=== PATIENT | male | born 1960 | race Caucasian/White ===

== ENCOUNTER 2017-07-06 05:45 | Inpatient (IN) | payer MEDICARE ==
[~2017-07-06] VITALS: Ht 180.3 cm; Wt 77.1 kg
[~2017-07-06 05:45] MED LIST: AZITHROMYCIN 2250 MG PO; CEFDINIR300 MG PO; CELEXA20 MG PO; DUONEB 2.5-0.5 M3 ML INH; NICOTINE TRANSD21 M1; PREDNISONE 10 M10 MG PO; VENTOLIN HFA 1818 GM INH; XANAX1 MG PO
[2017-07-06 06:14] LABS: ABSOLUTE LYMPHOCYTES 1.2 thou/uL (0.8-5.3); ABSOLUTE MONOCYTES 0.3 thou/uL (0.0-1.2); ABSOLUTE NEUTROPHILS 5.1 thou/uL (1.6-8.1); BASOPHILS 0.4 %; HEMATOCRIT 47.1 % (42.0-52.0); HEMOGLOBIN 16.3 gm/dL (14.0-18.0); LYMPHOCYTES 17.9 %; MCH 32.5 pg (26.0-34.0); MCHC 34.6 g/dL (28.0-37.0); MCV 93.9 fL (80.0-100.0); MONOCYTES 4.6 %; MPV 8.2 fl. (7.2-11.1); NUCLEATED RBCS 0 /100WBC; PLATELET COUNT* 212 thou/uL (150-400); POLYS 77.1 %; RBC 5.02 mil/uL (4.50-6.00); WBC 6.6 thou/uL (4.0-11.0)
[2017-07-06 06:20] LABS: URINE BILIRUBIN NEGATIVE (Negative); URINE BLOOD NEGATIVE (Negative); URINE CLARITY CLEAR; URINE COLOR YELLOW; URINE GLUCOSE-RANDOM NEGATIVE (Negative); URINE KETONES NEGATIVE (Negative); URINE LEUKOCYTES-REFLEX NEGATIVE (Negative); URINE NITRITE-REFLEX NEGATIVE (Negative); URINE PROTEIN TRACE (Negative); URINE SPECIFIC GRAVITY >= 1.030 (1.005-1.030); URINE UROBILINOGEN 0.2 E.U./dl (0.2-1.0)
[2017-07-06 06:21] LABS: CALCIUM 8.3 mg/dL (8.5-10.1); CREATININE 0.8 mg/dL (0.6-1.3); POTASSIUM 3.9 mmol/L (3.5-5.1)
[2017-07-06 06:26] LABS: TOTAL BILIRUBIN 0.9 mg/dL (<0.1-1.0); TOTAL PROTEIN 7.7 g/dL (6.4-8.2)
[2017-07-06 06:27] LABS: AMP/METHAMP Negative (Negative); BARBITURATES Negative (Negative); BENZODIAZEPINES Negative (Negative); COCAINE Negative (Negative); METHADONE Negative (Negative); OPIATES Negative (Negative); PCP Negative (Negative); THC Negative (Negative)
[2017-07-06 06:49] LABS: SALICYLATE 6.3 mg/dL (2.8-20.0)
[2017-07-06 06:53] LABS: MAGNESIUM 1.6 mg/dL (1.8-2.4); TROPONIN-I LEVEL <0.06 ng/mL (<0.06)
[2017-07-06 08:25] VITALS: BP 147/78
[2017-07-06 08:30] VITALS: BP 143/87
[2017-07-06 08:56] LABS: INR 1.2; PROTIME 12.1 Seconds (9.20-11.50)
[2017-07-06 08:59] LABS: CALCIUM 7.8 mg/dL (8.5-10.1); PHOSPHORUS* 3.2 mg/dL (2.5-4.9)
--- NOTE | 2017-07-06 12:11 | EKG ---
[place] [address] ELECTROCARDIOGRAM REPORT Name: STEVEN CARDENAS Room: [address] ADM IN [facility]#: [id number] Admission: 07/06/17 Attend Phys: Andrés Ames MD Discharge: Date of : 58 Report #: [id number] THIS REPORT FOR: //name// [facility] ED Test Date: 2017-07-06 Test Time: 06:13:10 Pat Name: STEVEN CARDENAS Department: Room: [facility] Gender: M Neuropsychology Service Director: DAKOTA : 1960 Requested By: Lamont Wayne Order Number: [id number] MD: Jorge Gamble Measurements Intervals [place] Rate: 100 P: 81 UT: 142 QRS: -58 QRSD: 87 T: 67 QT: 352 QTc: 454 Interpretive Statements Sinus tachycardia Atrial premature complexes Left atrial enlargement Left axis deviation incomplete RBBB Borderline low voltage, extremity leads Compared to ECG 04/13/2017 16:34:01 Atrial premature complex(es) now present Electronically Signed On 07-06-2017 12:11:15 [employer]ANCH HAND SUPERVISOR by Jorge Gamble [email or web address] <ELECTRONICALLY SIGNED> By: Jorge Gamble MD, [facility] 07/06/17 1211 0613 2 Jorge Gamble MD, [facility] /EPI
[2017-07-06 12:30] VITALS: BP 135/80
[2017-07-06 16:15] VITALS: BP 135/84
[2017-07-06 20:30] VITALS: BP 142/89
[2017-07-07 00:03] VITALS: BP 124/71
[2017-07-07 04:00] VITALS: BP 113/68
[2017-07-07 06:08] LABS: ABSOLUTE LYMPHOCYTES 0.8 thou/uL (0.8-5.3); ABSOLUTE MONOCYTES 0.3 thou/uL (0.0-1.2); ABSOLUTE NEUTROPHILS 5.2 thou/uL (1.6-8.1); BASOPHILS 0.3 %; HEMATOCRIT 46.1 % (42.0-52.0); HEMOGLOBIN 15.6 gm/dL (14.0-18.0); LYMPHOCYTES 13.3 %; MCH 32.3 pg (26.0-34.0); MCHC 33.8 g/dL (28.0-37.0); MCV 95.6 fL (80.0-100.0); MONOCYTES 4.1 %; MPV 8.7 fl. (7.2-11.1); NUCLEATED RBCS 0 /100WBC; PLATELET COUNT* 164 thou/uL (150-400); POLYS 82.3 %; RBC 4.82 mil/uL (4.50-6.00); RDW-CV 15.2 % (10.5-14.5); WBC 6.3 thou/uL (4.0-11.0)
[2017-07-07 06:30] LABS: CREATININE 0.7 mg/dL (0.6-1.3); POTASSIUM 4.1 mmol/L (3.5-5.1)
[2017-07-07 06:37] LABS: PLATELET ESTIMATE ADEQUATE
[2017-07-07 06:41] LABS: HYPOCHROMASIA 2+; TARGET CELLS 1+
[2017-07-07 08:00] VITALS: BP 113/66
[2017-07-07 12:00] VITALS: BP 134/89
[2017-07-07 16:00] VITALS: BP 136/86
--- NOTE | 2017-07-27 13:03 | D ---
[address] [address] DISCHARGE SUMMARY Name: STEVEN CARDENAS Room: [address] IN M.R.#: [id number] Admission: 07/06/17 Attend Phys: Andrés Ames MD Discharge: 07/07/17 Date of : 58 Report #: [id number] THIS REPORT FOR: //name// CC: Andrés Ames [facility] physician/PCP DATE OF SERVICE: 07/07/2017 DISMISSAL DIAGNOSES: 1. Severe alcohol abuse. 2. Dehydration. 3. Tachycardia. 4. Hyponatremia, likely due to volume excess. 5. Toxic encephalopathy secondary to alcohol abuse. 6. Left lower lobe pneumonitis. 7. Chronic obstructive pulmonary disease. HOSPITAL COURSE: This patient was admitted to the hospital with the above diagnoses, placed on a banana bag and withdrawal protocol as well as thiamine and folic acid, admitted to telemetry and unfortunately left against medical advice later in that day. Prognosis is poor due to his noncompliance. No further instructions were given as he did leave [place]. <ELECTRONICALLY SIGNED> By: Kev Deluca MD 07/27/17 1303 1201 1244abbey Deluca MD /nt
== END 2017-07-07 19:48 | disposition left against medical advice (07) | DRG 177 ==
LOC: M.ERS 05:45 → M.2W 07:19 → M.TBA-ER 07:19 → M.2W 08:23
PROVIDERS: Emergency Medicine; Family Medicine; ADMIT Internal Medicine
DX: J69.0 Pneumonitis due to inhalation of food and vomit (principal); G93.40 Encephalopathy, unspecified; F10.239 Alcohol dependence with withdrawal, unspecified; J44.1 Chronic obstructive pulmonary disease with (acute) exacerbation; E87.1 Hypo-osmolality and hyponatremia; J44.0 Chronic obstructive pulmonary disease with (acute) lower respiratory infection; J18.1 Lobar pneumonia, unspecified organism; J44.9 Chronic obstructive pulmonary disease, unspecified; F17.210 Nicotine dependence, cigarettes, uncomplicated; F32.9 Major depressive disorder, single episode, unspecified; I10 Essential (primary) hypertension; E86.0 Dehydration; Z53.21 Procedure and treatment not carried out due to patient leaving prior to being seen by health care provider; Z90.81 Acquired absence of spleen; Z79.899 Other long term (current) drug therapy

== ENCOUNTER 2017-08-30 21:41 | Inpatient (IN) | payer MEDICARE ==
[~2017-08-30] VITALS: Ht 180.3 cm; Wt 76.0 kg
[2017-08-30 21:49] VITALS: BP 124/78
[2017-08-30] MEDS ORDERED: BUSPIRONE HCL15 MG PO (21:55)
[2017-08-30] MEDS ORDERED: ESCITALOPRAM OX10 MG (21:56)
[2017-08-30] MEDS ORDERED: LOVASTATIN 20 M20 MG (21:58)
[2017-08-30] MEDS ORDERED: METFORMIN HCL500 MG (21:58)
[2017-08-30] MEDS ORDERED: LISINOPRIL5 MG (21:59)
[2017-08-30 22:00] LABS: ABSOLUTE BASOPHILS 0.1 thou/uL (0.0-0.2); ABSOLUTE EOSINOPHILS 0.1 thou/uL (0.0-0.7); ABSOLUTE LYMPHOCYTES 4.7 thou/uL (0.8-5.3); ABSOLUTE MONOCYTES 0.6 thou/uL (0.0-1.2); ABSOLUTE NEUTROPHILS 4.8 thou/uL (1.6-8.1); EOSINOPHILS 0.8 %; HEMATOCRIT 48.7 % (42.0-52.0); HEMOGLOBIN 16.8 gm/dL (14.0-18.0); MCH 32.3 pg (26.0-34.0); MCHC 34.6 g/dL (28.0-37.0); MCV 93.3 fL (80.0-100.0); NUCLEATED RBCS 0 /100WBC; PLATELET COUNT* 216 thou/uL (150-400); POLYS 46.2 %; RBC 5.22 mil/uL (4.50-6.00); WBC 10.3 thou/uL (4.0-11.0)
[2017-08-30] MEDS ORDERED: TERBINAFINE HC250 MG (22:00)
[2017-08-30 22:10] LABS: CALCIUM 8.3 mg/dL (8.5-10.1); CREATININE 0.7 mg/dL (0.6-1.3); POTASSIUM 4.3 mmol/L (3.5-5.1)
[2017-08-30 22:14] LABS: ALBUMIN 3.9 g/dL (3.4-5.0); MAGNESIUM 1.9 mg/dL (1.8-2.4); TOTAL BILIRUBIN 0.5 mg/dL (<0.1-1.0); TOTAL PROTEIN 7.3 g/dL (6.4-8.2)
[2017-08-30 23:40] VITALS: BP 116/76
[2017-08-31] VITALS (9 sets, daily range): BP systolic 95–126; BP diastolic 40–78
[2017-08-31 05:19] LABS: HEMOGLOBIN 15.1 gm/dL (14.0-18.0); MCHC 34.3 g/dL (28.0-37.0); MCV 93.1 fL (80.0-100.0); MPV 8.1 fl. (7.2-11.1); RBC 4.72 mil/uL (4.50-6.00); RDW-CV 14.1 % (10.5-14.5); WBC 7.8 thou/uL (4.0-11.0)
[2017-08-31 05:37] LABS: INR 1.2; PROTIME 11.2 Seconds (9.20-11.50)
[2017-08-31 06:36] LABS: ALBUMIN 3.3 g/dL (3.4-5.0); CALCIUM 7.7 mg/dL (8.5-10.1); CREATININE 0.7 mg/dL (0.6-1.3); POTASSIUM 4.1 mmol/L (3.5-5.1); TOTAL BILIRUBIN 0.5 mg/dL (<0.1-1.0); TOTAL PROTEIN 6.4 g/dL (6.4-8.2)
[2017-08-31 09:16] LABS: URINE BILIRUBIN NEGATIVE (Negative); URINE BLOOD NEGATIVE (Negative); URINE CLARITY CLEAR; URINE COLOR YELLOW; URINE GLUCOSE-RANDOM NEGATIVE (Negative); URINE KETONES NEGATIVE (Negative); URINE LEUKOCYTES NEGATIVE (Negative); URINE NITRITE NEGATIVE (Negative); URINE PROTEIN NEGATIVE (Negative); URINE SPECIFIC GRAVITY 1.015 (1.005-1.030); URINE UROBILINOGEN 0.2 E.U./dl (0.2-1.0)
[2017-08-31 09:44] LABS: AMP/METHAMP Negative (Negative); BARBITURATES Negative (Negative); BENZODIAZEPINES Negative (Negative); COCAINE Negative (Negative); METHADONE Negative (Negative); OPIATES Negative (Negative); PCP Negative (Negative); THC Negative (Negative)
== END 2017-08-31 10:03 | disposition left against medical advice (07) | DRG 894 ==
LOC: M.ERS 21:41 → M.ICU 23:16 → M.TBA-ER 23:16 → M.ICU 23:41
PROVIDERS: Emergency Medicine; ADMIT Internal Medicine
DX: F10.231 Alcohol dependence with withdrawal delirium (principal); J98.11 Atelectasis; E87.1 Hypo-osmolality and hyponatremia; F10.229 Alcohol dependence with intoxication, unspecified; J44.9 Chronic obstructive pulmonary disease, unspecified; F32.9 Major depressive disorder, single episode, unspecified; F41.9 Anxiety disorder, unspecified; F17.210 Nicotine dependence, cigarettes, uncomplicated; Z53.21 Procedure and treatment not carried out due to patient leaving prior to being seen by health care provider; Z88.8 Allergy status to other drugs, medicaments and biological substances; Z79.899 Other long term (current) drug therapy

== ENCOUNTER 2017-09-17 04:12 | Inpatient (IN) | payer MEDICARE ==
[~2017-09-17] VITALS: Ht 180.3 cm; Wt 78.9 kg
[~2017-09-17 04:12] MED LIST changes: +BUSPIRONE HCL15 MG PO; +ESCITALOPRAM OX10 MG; +LISINOPRIL5 MG; +LOVASTATIN 20 M20 MG; +METFORMIN HCL500 MG; +TERBINAFINE HC250 MG
[2017-09-17 04:19] VITALS: BP 145/82
[2017-09-17 04:44] LABS: URINE BILIRUBIN NEGATIVE (Negative); URINE BLOOD NEGATIVE (Negative); URINE CLARITY CLEAR; URINE COLOR YELLOW; URINE GLUCOSE-RANDOM NEGATIVE (Negative); URINE KETONES TRACE (Negative); URINE LEUKOCYTES NEGATIVE (Negative); URINE NITRITE NEGATIVE (Negative); URINE PROTEIN TRACE (Negative); URINE SPECIFIC GRAVITY >= 1.030 (1.005-1.030); URINE UROBILINOGEN 0.2 E.U./dl (0.2-1.0)
[2017-09-17 04:58] LABS: AMP/METHAMP Negative (Negative); BARBITURATES Negative (Negative); BENZODIAZEPINES Negative (Negative); COCAINE Negative (Negative); METHADONE Negative (Negative); OPIATES Negative (Negative); PCP Negative (Negative); THC Negative (Negative)
[2017-09-17 05:16] LABS: HEMATOCRIT 48.4 % (42.0-52.0); HEMOGLOBIN 16.8 gm/dL (14.0-18.0); MCH 32.5 pg (26.0-34.0); MCHC 34.8 g/dL (28.0-37.0); MCV 93.3 fL (80.0-100.0); MPV 8.2 fl. (7.2-11.1); RBC 5.19 mil/uL (4.50-6.00); RDW-CV 14.9 % (10.5-14.5); WBC 6.4 thou/uL (4.0-11.0)
[2017-09-17 05:22] LABS: ALCOHOL 158 mg/dL (<10); SALICYLATE 7.6 mg/dL (2.8-20.0)
[2017-09-17 05:25] LABS: ACETAMINOPHEN < 2 ug/mL (10-30)
[2017-09-17 05:42] LABS: CALCIUM 8.6 mg/dL (8.5-10.1); CREATININE 0.8 mg/dL (0.6-1.3); POTASSIUM 4.2 mmol/L (3.5-5.1)
[2017-09-17 05:47] LABS: TOTAL BILIRUBIN 0.5 mg/dL (<0.1-1.0); TOTAL PROTEIN 7.8 g/dL (6.4-8.2)
[2017-09-17 05:54] LABS: ALBUMIN 4.1 g/dL (3.4-5.0)
[2017-09-17 13:51] VITALS: BP 140/84
[2017-09-17 14:26] VITALS: BP 138/80
[2017-09-17 16:00] VITALS: BP 122/66
--- NOTE | 2017-09-17 16:00 | EKG ---
[place] [address] ELECTROCARDIOGRAM REPORT Name: STEVEN CARDENAS Room: [address] ADM IN .R.#: [id number] Admission: 09/17/17 Attend Phys: Jairo Acuna Discharge: Date of : 58 Report #: [id number] THIS REPORT FOR: //name// [facility] ED Test Date: 2017-09-17 Test Time: 05:25:04 Pat Name: STEVEN CARDENAS Department: Room: [facility] Gender: M Counter Manager: TONJA Grimes : 1960 Requested By: Anna Gregg Order Number: [id number] MD: Daniel Bland Measurements Intervals [place] Rate: 104 P: 82 NM: 138 QRS: -71 QRSD: 89 T: 59 QT: 346 QTc: 455 Interpretive Statements Sinus tachycardia Probable left atrial enlargement Left axis deviation Baseline wander in lead(s) V4 Compared to ECG 07/06/2017 06:13:10 Atrial premature complex(es) no longer present Right bundle-branch block no longer present Electronically Signed On 09-17-2017 16:00:16 CDT by Daniel Bland [email or web address] <ELECTRONICALLY SIGNED> By: Daniel Bland MD, FACC 09/17/17 1600 0525 Daniel Bland MD, [facility] /EPI
--- NOTE | 2017-09-17 16:01 | EKG ---
[place] [address] ELECTROCARDIOGRAM REPORT Name: STEVEN CARDENAS Room: [address] ADM IN M.R.#: [id number] Admission: 09/17/17 Attend Phys: Jairo Acuna Discharge: Date of : 58 Report #: [id number] THIS REPORT FOR: //name// [facility] ED Test Date: 2017-09-17 Test Time: 10:42:57 Pat Name: STEVEN CARDENAS Department: Room: [facility] Gender: M Atmospheric Scientist: Cornelio ORO : 1960 Requested By: Steven Martinez Order Number: [id number] MD: Daniel Bland Measurements Intervals [place] Rate: 112 P: 80 CT: 144 QRS: -57 QRSD: 78 T: 48 QT: 319 QTc: 436 Interpretive Statements Sinus tachycardia Probable left atrial enlargement Left axis deviation Compared to ECG 07/06/2017 06:13:10 Atrial premature complex(es) no longer present Right bundle-branch block no longer present Electronically Signed On 09-17-2017 16:01:14 CDT by Daniel Bland [email or web address] <ELECTRONICALLY SIGNED> By: Daniel Bland MD, FACC 09/17/17 1601 1042 1042 Daniel Bland MD, FAC /EPI
[2017-09-17 17:39] VITALS: BP 122/66
[2017-09-17 19:49] VITALS: BP 132/82
[2017-09-18] VITALS: BP 119/74
[2017-09-18 04:00] VITALS: BP 126/70
[2017-09-18 09:00] VITALS: BP 125/69
[2017-09-18] MEDS ORDERED: FLOVENT HFA 4444 MCG INH (11:51)
[2017-09-18 12:47] VITALS: BP 125/69
== END 2017-09-18 14:23 | disposition home or self-care (01) | DRG 896 ==
LOC: M.ERS 04:12 → M.TBA-ER 13:00 → M.2W 13:00 → M.ICU 13:57 → M.2W 20:53
PROVIDERS: Personal Emergency Response Attendant; ADMIT Internal Medicine
DX: F10.129 Alcohol abuse with intoxication, unspecified (principal); G93.41 Metabolic encephalopathy; J96.01 Acute respiratory failure with hypoxia; R45.851 Suicidal ideations; F41.9 Anxiety disorder, unspecified; F32.9 Major depressive disorder, single episode, unspecified; J44.9 Chronic obstructive pulmonary disease, unspecified; F17.210 Nicotine dependence, cigarettes, uncomplicated; Z88.8 Allergy status to other drugs, medicaments and biological substances

== ENCOUNTER 2017-09-26 04:33 | Emergency (ER) | payer OTHER ==
[~2017-09-26] VITALS: Ht 180.3 cm; Wt 74.8 kg
[~2017-09-26 04:33] MED LIST changes: +FLOVENT HFA 4444 MCG INH
[2017-09-26 04:59] LABS: ABSOLUTE BASOPHILS 0.1 thou/uL (0.0-0.2); ABSOLUTE MONOCYTES 1.1 thou/uL (0.0-1.2); ABSOLUTE NEUTROPHILS 3.6 thou/uL (1.6-8.1); EOSINOPHILS 0.4 %; HEMATOCRIT 47.5 % (42.0-52.0); HEMOGLOBIN 16.4 gm/dL (14.0-18.0); LYMPHOCYTES 29.5 %; MCH 32.9 pg (26.0-34.0); MCHC 34.6 g/dL (28.0-37.0); MCV 95.1 fL (80.0-100.0); MONOCYTES 16.5 %; MPV 8.5 fl. (7.2-11.1); NUCLEATED RBCS 0 /100WBC; PLATELET COUNT* 140 thou/uL (150-400); POLYS 52.6 %; RBC 4.99 mil/uL (4.50-6.00); RDW-CV 15.3 % (10.5-14.5); WBC 6.9 thou/uL (4.0-11.0)
[2017-09-26 05:13] LABS: ANION GAP 17 mmol/L (7-16); BUN 3 mg/dL (7-18); CALCIUM 8.6 mg/dL (8.5-10.1); CHLORIDE 90 mmol/L (98-107); CO2 22 mmol/L (21-32); CREATININE 0.7 mg/dL (0.6-1.3); GLUCOSE 120 mg/dL (70-99); POTASSIUM 4.1 mmol/L (3.5-5.1); SODIUM 129 mmol/L (136-145)
[2017-09-26 05:14] LABS: APTT 30.5 Seconds (25.0-31.3); INR 1.2; PROTIME 11.2 Seconds (9.20-11.50)
[2017-09-26 05:18] LABS: ALCOHOL 64 mg/dL (<10); SALICYLATE 5.9 mg/dL (2.8-20.0)
[2017-09-26 05:19] LABS: ACETAMINOPHEN < 10 ug/mL (10-30)
[2017-09-26 05:23] LABS: ALBUMIN 4.1 g/dL (3.4-5.0); ALKALINE PHOSPHATASE 75 U/L (46-116); LIPASE 306 U/L (73-393); MAGNESIUM 1.9 mg/dL (1.8-2.4); NT-PRO BRAIN NAT PEPTIDE 61 pg/mL (<300); SGOT 66 U/L (15-37); SGPT 60 U/L (30-65); TOTAL BILIRUBIN 1.2 mg/dL (<0.1-1.0); TOTAL PROTEIN 7.7 g/dL (6.4-8.2); TROPONIN-I LEVEL <0.06 ng/mL (<0.06)
[2017-09-26] MEDS ORDERED: PREDNISONE 20 M20 M1 PO (06:20)
[2017-09-26] MEDS ORDERED: OMEPRAZOLE 20 M20 MG PO (06:20)
[2017-09-26] MEDS ORDERED: ATIVAN1 MG PO (06:20)
[2017-09-26 06:25] VITALS: BP 180/104
--- NOTE | 2017-09-26 11:14 | EKG ---
[place] [address] ELECTROCARDIOGRAM REPORT Name: STEVEN CARDENAS Room: [facility]#: [id number] Admission: 09/26/17 Attend Phys: Discharge: 09/26/17 Date of : 58 Report #: [id number] THIS REPORT FOR: //name// [facility] ED Test Date: 2017-09-26 Test Time: 05:20:14 Pat Name: STEVEN CARDENAS Department: Room: Gender: M Director Of Research Center: TONJA Grimes : 1960 Requested By: Lamont Wayne Order Number: [id number] MD: Jorge Gamble Measurements Intervals [place] Rate: 109 P: 81 ND: 137 QRS: -73 QRSD: 87 T: 57 QT: 330 QTc: 445 Interpretive Statements Sinus tachycardia incomplete RBBB Biatrial enlargement Left axis deviation Low voltage, extremity and precordial leads Baseline wander in lead(s) V2 Compared to ECG 09/17/2017 10:42:57 no change Electronically Signed On 09-26-2017 11:14:05 CDT by Jorge Gamble [email or web address] <ELECTRONICALLY SIGNED> By: Jorge Gamble MD, [facility] 09/26/17 1114 0520 0520 Jorge Gamble MD, [facility] /EPI
== END 2017-09-26 06:27 | disposition home or self-care (01) ==
LOC: M.ERS 04:33
PROVIDERS: Family Medicine
DX: F10.129 Alcohol abuse with intoxication, unspecified (principal); J44.9 Chronic obstructive pulmonary disease, unspecified; F32.9 Major depressive disorder, single episode, unspecified; F41.9 Anxiety disorder, unspecified; F17.210 Nicotine dependence, cigarettes, uncomplicated

== ENCOUNTER 2017-12-02 06:02 | Emergency (ER) | payer OTHER ==
[~2017-12-02] VITALS: Ht 180.3 cm; Wt 74.8 kg
[~2017-12-02 06:02] MED LIST changes: +ATIVAN1 MG PO; +OMEPRAZOLE 20 M20 MG PO; +PREDNISONE 20 M20 M1 PO
[2017-12-02 06:34] LABS: URINE BILIRUBIN NEGATIVE (Negative); URINE BLOOD NEGATIVE (Negative); URINE CLARITY CLEAR; URINE COLOR YELLOW; URINE GLUCOSE-RANDOM 2+ (Negative); URINE KETONES NEGATIVE (Negative); URINE LEUKOCYTES-REFLEX NEGATIVE (Negative); URINE NITRITE-REFLEX NEGATIVE (Negative); URINE PROTEIN NEGATIVE (Negative); URINE SPECIFIC GRAVITY 1.015 (1.005-1.030); URINE UROBILINOGEN 0.2 E.U./dl (0.2-1.0)
[2017-12-02 06:41] LABS: AMP/METHAMP Negative (Negative); BARBITURATES Negative (Negative); BENZODIAZEPINES Negative (Negative); COCAINE Negative (Negative); METHADONE Negative (Negative); OPIATES Negative (Negative); PCP Negative (Negative); THC Negative (Negative)
[2017-12-02 06:49] LABS: ABSOLUTE BASOPHILS 0.1 thou/uL (0.0-0.2); ABSOLUTE LYMPHOCYTES 2.4 thou/uL (0.8-5.3); ABSOLUTE MONOCYTES 0.6 thou/uL (0.0-1.2); ABSOLUTE NEUTROPHILS 3.7 thou/uL (1.6-8.1); BASOPHILS 0.9 %; EOSINOPHILS 0.3 %; HEMATOCRIT 53.4 % (42.0-52.0); HEMOGLOBIN 18.6 gm/dL (14.0-18.0); LYMPHOCYTES 35.7 %; MCH 33.5 pg (26.0-34.0); MCHC 34.8 g/dL (28.0-37.0); MCV 96.3 fL (80.0-100.0); MONOCYTES 8.8 %; MPV 8.6 fl. (7.2-11.1); NUCLEATED RBCS 0 /100WBC; PLATELET COUNT* 161 thou/uL (150-400); POLYS 54.3 %; RBC 5.55 mil/uL (4.50-6.00); RDW-CV 14.5 % (10.5-14.5); WBC 6.8 thou/uL (4.0-11.0)
[2017-12-02 06:52] LABS: CALCIUM 8.2 mg/dL (8.5-10.1); CREATININE 0.8 mg/dL (0.6-1.3); POTASSIUM 4.1 mmol/L (3.5-5.1)
[2017-12-02 06:56] LABS: TOTAL BILIRUBIN 0.4 mg/dL (<0.1-1.0); TOTAL PROTEIN 8.3 g/dL (6.4-8.2)
[2017-12-02 07:20] VITALS: BP 163/97
== END 2017-12-02 07:20 | disposition still patient (30) ==
LOC: M.ERS 06:02
PROVIDERS: Personal Emergency Response Attendant
DX: F10.129 Alcohol abuse with intoxication, unspecified (principal); J44.9 Chronic obstructive pulmonary disease, unspecified; F41.9 Anxiety disorder, unspecified; F32.9 Major depressive disorder, single episode, unspecified; F17.210 Nicotine dependence, cigarettes, uncomplicated

== ENCOUNTER 2017-12-16 21:03 | Emergency (ER) | payer OTHER ==
[~2017-12-16] VITALS: Ht 180.3 cm; Wt 76.2 kg
[2017-12-16] MEDS ORDERED: METFORMIN HCL500 MG (21:31)
[2017-12-16 22:04] LABS: ABSOLUTE BASOPHILS 0.1 thou/uL (0.0-0.2); ABSOLUTE LYMPHOCYTES 2.9 thou/uL (0.8-5.3); ABSOLUTE MONOCYTES 0.5 thou/uL (0.0-1.2); EOSINOPHILS 0.5 %; HEMATOCRIT 48.1 % (42.0-52.0); HEMOGLOBIN 16.4 gm/dL (14.0-18.0); LYMPHOCYTES 44.3 %; MCH 32.8 pg (26.0-34.0); MCV 96.3 fL (80.0-100.0); MONOCYTES 8.4 %; MPV 7.9 fl. (7.2-11.1); NUCLEATED RBCS 0 /100WBC; PLATELET COUNT* 286 thou/uL (150-400); POLYS 45.8 %; WBC 6.5 thou/uL (4.0-11.0)
[2017-12-16 22:10] LABS: CREATININE 0.7 mg/dL (0.6-1.3)
[2017-12-16 22:22] LABS: ALBUMIN 3.9 g/dL (3.4-5.0); CALCIUM 8.7 mg/dL (8.5-10.1); TOTAL BILIRUBIN 0.6 mg/dL (<0.1-1.0); TOTAL PROTEIN 7.3 g/dL (6.4-8.2)
[2017-12-16] MEDS ORDERED: NEURONTIN 400M400 M2 PO (23:04)
[2017-12-16] MEDS ORDERED: ZOFRAN ODT4 M1 PO (23:04)
[2017-12-16 23:15] VITALS: BP 116/72
== END 2017-12-16 23:15 | disposition left against medical advice (07) ==
LOC: M.ERS 21:03
PROVIDERS: Emergency Medicine Emergency Medical Services
DX: F10.129 Alcohol abuse with intoxication, unspecified (principal); Y90.7 Blood alcohol level of 200-239 mg/100 ml; J44.9 Chronic obstructive pulmonary disease, unspecified; F32.9 Major depressive disorder, single episode, unspecified; F41.9 Anxiety disorder, unspecified; F17.210 Nicotine dependence, cigarettes, uncomplicated; Z88.6 Allergy status to analgesic agent; Z88.5 Allergy status to narcotic agent